=== PATIENT | female | born 1970 | race Caucasian/White ===

== ENCOUNTER 2024-06-23 06:43 | Emergency (ER) | payer BC ==
[2024-06-23 07:07] VITALS: TEMP 98.1; O2SAT 100
--- NOTE | 2024-06-23 07:13 | ERPHSYRPT ---
- History of Present Illness Time Seen by Provider: 06/23/24 07:13 Source: patient Exam Limitations: no limitations Patient Subjective Stated Complaint: c/o of finger injuries on bilat. hands Triage Nursing Assessment: Patient brought self to ED with c/o of injuries to the second, third, and fourth fingers of the right hand. Patient rates pain 6/10. Bruising and redness noted under the nail beds. Patient able to move fingers but not with pain. Patient stated she was trying to manually close her garage door and smashed her fingers. Patient describes pain as a throbbing pain that radiates down her hand. skin w/n/d, vitals wnl, gait steady, pulses normal, patient doesn't appear to be in any distress at this time. Physician History: This is a right handed 54-year-old white female patient who was attempting to close her garage door manually when she caught fingers from both hands and a folding panel. The left hand, she states, has very little pain and she is not concerned with this. However, she is having throbbing pain with and without movement of digits 2, 3, 4 of her right hand. Patient has no other areas of pain complaints. Patient has a history of coronary artery disease and hypertension. Occurred: just prior to arrival Method of Injury: direct blow Quality: constant, aching, throbbing Severity of Pain-Max: moderate Severity of Pain-Current: moderate Extremities Pain Location: hand: right, 2nd finger: right, 3rd finger: right, 4th finger: right Modifying Factors: Improves With: movement Associated Symptoms: none Allergies/Adverse Reactions: simvastatin Allergy (Verified 06/23/24 07:09) morphine Adverse Reaction (Verified 06/23/24 07:09) Home Medications: Amlodipine Besylate 5 mg [Norvasc 5 mg] 5 mg PO DAILY 06/23/24 [History] Cholecalciferol (Vitamin D3) [Vitamin D3] 50 mcg PO WEEKLY 06/23/24 [History] Eszopiclone [Lunesta] 3 mg PO HS 06/23/24 [History] Ferrous Sulfate 325 mg PO BID 06/23/24 [History] Fluoxetine HCl 20 mg PO DAILY 06/23/24 [History] Omeprazole 40 mg PO DAILY 06/23/24 [History] Sucralfate [Carafate] 1 gm PO BID 06/23/24 [History] Hx Tetanus, Diphtheria Vaccination/Date Given: No Hx Influenza Vaccination/Date Given: No Hx Pneumococcal Vaccination/Date Given: No Travel Risk - International Travel Have you traveled outside of the country in past 3 weeks: No - Emerging Infectious Disease Are you exhibiting symptoms associated with any current EIDs: No - Review of Systems Constitutional: No Symptoms Eyes: No Symptoms Ears, Nose, & Throat: No Symptoms Respiratory: No Symptoms Cardiac: No Symptoms Abdominal/Gastrointestinal: No Symptoms Genitourinary Symptoms: No Symptoms Musculoskeletal: Injury (Right hand) Skin: No Symptoms Neurological: No Symptoms Psychological: No Symptoms Endocrine: No Symptoms Hematologic/Lymphatic: No Symptoms Immunological/Allergic: No Symptoms All Other Systems: Reviewed and Negative - Past Medical History Pertinent Past Medical History: Yes Neurological History: No Pertinent History ENT History: No Pertinent History Cardiac History: Coronary Artery Disease, High Cholesterol, Hypertension Respiratory History: No Pertinent History Endocrine Medical History: Diabetes Type II Musculoskeletal History: Fractures GI Medical History: No Pertinent History History: No Pertinent History Psycho-Social History: No Pertinent History Female Reproductive Disorders: No Pertinent History Other Medical History: right arm fracture in 1992 - Past Surgical History Past Surgical History: Yes Neuro Surgical History: No Pertinent History Cardiac: No Pertinent History Respiratory: No Pertinent History Gastrointestinal: Cholecystectomy Genitourinary: No Pertinent History Musculoskeletal: No Pertinent History Female Surgical History: Hysterectomy, Tubal Ligation Other Surgical History: gastric bypass surgery in 2019, right arm cristian semoval in 2009 - Social History Smoking Status: Never smoker Exposure to second hand smoke: No Drug Use: none - Social Determinants of Health Will the patient participate in the screening: Yes Do you worry about a steady place to live?: No Do you have any problems with any of the following?: No known problems In the past 12 months,have you had to go without utilities?: No Transportation Issues: No Has anyone in your support network made you feel unsafe?: No Have you or anyone in your house had to go without enough: No - Nursing Vital Signs Nursing Vital Signs: Initial Vital Signs Temperature 98.1 F 06/23/24 06:47 Pulse Rate 78 06/23/24 06:47 Respiratory Rate 18 06/23/24 06:47 Blood Pressure 143/78 06/23/24 06:47 O2 Sat by Pulse Oximetry 100 06/23/24 06:47 Pain Scale Pain Intensity 6 - Physical Exam General Appearance: no apparent distress, alert, anxiety, thin Eyes, Ears, Nose, Throat Exam: normal ENT inspection, moist mucous membranes Neck Exam: normal inspection, non-tender, supple, full range of motion Cardiovascular/Respiratory Exam: chest non-tender, no respiratory distress Abdominal Exam: non-tender Back Exam: normal inspection, normal range of motion, No CVA tenderness, No vertebral tenderness Shoulder Exam: normal inspection, non-tender, no evidence of injury, normal ROM Elbow/Forearm Exam: normal inspection, non-tender, no evidence of injury, normal ROM Wrist Exam: normal inspection, non-tender, no evidence of injury, normal ROM Hand Exam: normal ROM (Right hand), ecchymosis (Mild, sliver of ecchymosis nailbed digit 3 right hand), soft tissue tenderness (Distal digits 2, 3, 4 right hand) Neuro/Tendon Exam: normal sensation, normal motor functions, normal tendon functions, responds to pain, no evidence tendon injury Mental Status Exam: alert, oriented x 3, cooperative Skin Exam: normal color, warm, dry SpO2 Interpretation: normal SpO2: 100 O2 Delivery: Room Air - Course Nursing assessment & vital signs reviewed: Yes Ordered Tests: Active Orders 24 hr Category Date Time Status HAND (MINIMUM 3 VIEWS) Stat Exams 06/23/24 07:20 Taken - Progress Progress: unchanged Progress Note: 06/23/24 07:25 My medical decision making and the assignment of low complexity to this patient's medical issue today is based on review of the patient's past medical history, review of the patient's medication list, reviewed patient drug allergy list, history present illness and physical findings on examination. The workup in this patient includes x-ray of the right hand. Differential diagnosis includes but is not limited to fracture and/or dislocation digits of right hand, contusion of digits of right hand 06/23/24 07:39 Patient states that she can take [place] without any adverse effects. 06/23/24 07:43 I interpreted the preliminary report of the patient's right hand x-ray. On my interpretation there is a questionable tiny cortical disruption right fourth digit versus arthritic change. Counseled pt/family regarding: diagnosis, need for follow-up, rad results Medical Desision Making - Diagnostic Testing Diagnostic test were ordered, analyzed, and reviewed by me: Yes Radiological Interpretation: Interpreted by me - Risk of complications The pt has a mod risk of morbidity or mortality based on: Need for prescription drug management - Departure Departure Disposition: Home Clinical Impression: Closed fracture of tuft of distal phalanx of finger Condition: Stable Critical Care Time: No Referrals: NAHID SIMEON, DRUM CARRIER [Primary Care Provider] - Follow up/PCP as directed Additional Instructions: Ice pack/ice bath 3-4 times a day for the next 2 to 3 days. Add ibuprofen for pain control. Prescriptions: Hydrocodone/APAP 5/325 [[place] 5/325 mg] 1 each PO Q8H PRN PRN #6 tablet MDD 3 PRN Reason: Pain
[2024-06-23 07:50] VITALS: BP 146/71; PULSE 64; RESP 14
--- NOTE | 2024-06-23 08:39 | XRAY ---
Indication: Hand injury with garage door. Comparison: None 3 view right hand demonstrates osteopenia, minimal degenerative changes all IP joints, and mild degenerative changes 1st metacarpal multangular articulation. No other bony, articular, or soft tissue abnormalities.
== END 2024-06-23 07:57 | disposition home or self-care (01) ==
LOC: ED 06:43
DX: S62.634A Displaced fracture of distal phalanx of right ring finger, initial encounter for closed fracture (principal); W23.0XXA Caught, crushed, jammed, or pinched between moving objects, initial encounter; Y92.015 Private garage of single-family (private) house as the place of occurrence of the external cause; M79.644 Pain in right finger(s); I10 Essential (primary) hypertension; E78.5 Hyperlipidemia, unspecified; E11.9 Type 2 diabetes mellitus without complications; Z79.891 Long term (current) use of opiate analgesic; Z79.899 Other long term (current) drug therapy
CPT/HCPCS: 73130; 99282; 99283